=== PATIENT | male | born 1995 | race Caucasian/White ===

== ENCOUNTER 2021-04-03 08:38 | Emergency (ER) | payer OTHER ==
[2021-04-03 08:45] VITALS: BP 116/70; PULSE 72; TEMP 98; BMI 27.7
[2021-04-03] MEDS ORDERED: CEFAZOLIN 1 GM in DEXTROSE 5%-WATER - 50 ML IVPB ONE (09:43)
[2021-04-03] MEDS ORDERED: ACETAMINOPHEN 325 MG TABLET (FP) PO ONE (09:44)
[2021-04-03] MEDS ORDERED: DIPHTH,PERTUSS(ACELL),TET 0.5 ML DISP.SYRIN IM ONE ×2 (09:44→09:51)
[2021-04-03] MEDS ORDERED: ACETAMINOPHEN 325 MG TABLET (FP) ONE (09:50)
[2021-04-03] MEDS ORDERED: CEFAZOLIN 1 GM/D5W 1 GM/50 ML BAG ONE (09:51)
[2021-04-03] MEDS ORDERED: BACITRACIN 0.9 GM PACKET TP ONE (13:13)
[2021-04-03] MEDS ORDERED: BACITRACIN 0.9 GM PACKET ONE (13:19)
== END 2021-04-03 14:07 | disposition home or self-care (01) ==
LOC: JER 08:38
PROC: 3E03329 Introduction of Other Anti-infective into Peripheral Vein, Percutaneous Approach (ICD-10-PCS; principal; 2021-04-03)
PROC: 3E0234Z Introduction of Serum, Toxoid and Vaccine into Muscle, Percutaneous Approach (ICD-10-PCS; 2021-04-03)
DX: S68.119A Complete traumatic metacarpophalangeal amputation of unspecified finger, initial encounter (principal)
CPT/HCPCS: 73140-TC-LT-FY; 90471; 90715; 96365; 99284-25